=== PATIENT | male | born 1990 | race Caucasian/White ===

== ENCOUNTER 2018-04-27 11:31 | Emergency (ER) | payer OTHER ==
[~2018-04-27] VITALS: Ht 167.6 cm; Wt 83.9 kg
[2018-04-27] MEDS ORDERED: IBUPROFEN800 MG PO (15:34)
== END 2018-04-27 15:47 | disposition home or self-care (01) ==
LOC: ER 11:31
DX: M25.512 Pain in left shoulder (principal)